=== PATIENT | female | born 1955 | race Caucasian/White ===

== ENCOUNTER → 2016-10-14 | Outpatient (CLI) | payer OTHER ==
[2016-10-14 12:20] LABS: Prothrombin Time 10.1 sec (9.0-12.0)
[2016-10-14 12:36] LABS: Appearance,Urine Clear (Clear); Bilirubin,Urine Negative (Negative); Glucose,Urine (UA) Negative (Negative); Ketones,Urine Negative (Negative); Leukocyte Esterase,Urine Negative (Negative); Nitrite,Urine Negative (Negative); PH, Urine 6.5 (5.0-8.0); Particle Count 404; Protein,Urine Negative (Negative); RBC,Urine 4 /hpf (0-5); Specific Gravity,Urine 1.014 (1.001-1.035); UA Billing (MACRO vs. MICRO) MICRO; Urobilinogen,Urine <2.0 mg/dL (<2.0); WBC,Urine <1 /hpf (0-5)
[2016-10-14 12:42] LABS: ALT 24 U/L (9-52); AST 19 U/L (14-36); Alkaline Phosphatase 74 U/L (38-126); Anion Gap 9 mmol/L; Blood Urea Nitrogen 21 mg/dL (7-17); Calcium 9.9 mg/dL (8.4-10.2); Carbon Dioxide 32 mmol/L (22-30); Chloride 101 mmol/L (98-107); Glucose 82 mg/dL (74-99); Non-African American GFR(MDRD) >60 (>60 ml/min/1.73 sqM); Potassium 3.9 mmol/L (3.5-5.1); Sodium 142 mmol/L (137-145); Total Bilirubin 0.5 mg/dL (0.2-1.3); Total Protein 7.5 g/dL (6.3-8.2)
[2016-10-14 12:44] LABS: CH 31.2; HCT 39.3 % (34.0-46.0); HDW 2.37; HGB 12.7 gm/dL (11.4-16.0); MCH 30.6 pg (25.0-35.0); MCHC 32.3 g/dL (31.0-37.0); MCV 94.9 fL (80.0-100.0); RBC 4.15 m/uL (3.80-5.40); RDW 13.2 % (11.5-15.5); WBC 6.1 k/uL (3.8-10.6)
== END | disposition home or self-care (01) ==
LOC: LABPAT 11:31
PROVIDERS: ATTEND Orthopaedic Surgery
DX: Z01.810 Encounter for preprocedural cardiovascular examination (principal); Z01.812 Encounter for preprocedural laboratory examination
CPT/HCPCS: 80053; 81001; 85027; 85610; 85730; 87070

== ENCOUNTER 2016-10-30 14:50 | Inpatient (IN) | payer OTHER ==
[2016-11-04 15:29] VITALS: BMI 34.6
[2016-11-10] MEDS ORDERED: ceFAZolin 2 GM in SODIUM CHLORIDE 0.9% 100 ML IVPB ONE (05:00)
[2016-11-10] MEDS ORDERED: MELOXICAM 7.5 MG TAB PO ONE (05:00)
[2016-11-10] MEDS ORDERED: TRANEXAMIC ACID 1,000 MG in SODIUM CHLORIDE 0.9% 100 ML IVPB ONE ×4 (05:00)
[2016-11-10] MEDS ORDERED: ACETAMINOPHEN TAB 500 MG TAB PO ONE (05:00)
[2016-11-10] MEDS ORDERED: MIDAZOLAM 2 MG/2 ML VIAL IV PRN (05:22)
[2016-11-10] MEDS ORDERED: LACTATED RINGERS 1,000 ML IV SCH (05:22)
[2016-11-10] MEDS ORDERED: HYDROmorphone 1 MG/ML 1 ML SYRINGE IVP PRN ×4 (05:22→10:39)
[2016-11-10] MEDS ORDERED: SCOPOLAMINE 1.5MG/72HR PATCH TRANSDERM ONE (05:22)
[2016-11-10] MEDS ORDERED: ONDANSETRON 4 MG/2 ML VIAL IVP ONE (05:22)
[2016-11-10] MEDS ORDERED: DEXAMETHASONE SOD PHOSPHATE 10 MG/ML 1 ML VIAL IV ONE (05:22)
[2016-11-10] MEDS ORDERED: ROPIVACAINE 246.25 MG, EPINEPHrine 0.5 MG, KETOROLAC 30 MG, cloNIDine HCL/PF 80 MCG, WA... MISCELLANE ONE ×5 (05:49)
[2016-11-10] MEDS ORDERED: LIDOCAINE 1% 20 ML VIAL (10MG/ML) FOR IV START INTRADERMA ONE (07:37)
[2016-11-10] MEDS ORDERED: FAMOTIDINE 20 MG/2 ML VIAL IVP ONE (07:57)
[2016-11-10] MEDS ORDERED: SODIUM CHLORIDE 0.9% 100 ML BAG ONE (08:35)
[2016-11-10] MEDS ORDERED: HEPARIN SODIUM,PORCINE 10,000 UNIT/ML 1 ML VIAL ONE (08:35)
[2016-11-10] MEDS ORDERED: PROPOFOL 10 MG/ML 20 ML VIAL IV ONE ×2 (08:35)
[2016-11-10] MEDS ORDERED: MIDAZOLAM 2 MG/2 ML VIAL ONE (08:35)
[2016-11-10] MEDS ORDERED: fentaNYL (PF) 50 MCG/ML 2 ML AMP ONE (08:35)
[2016-11-10] MEDS ORDERED: SODIUM CHLORIDE 0.9% IRRIG 1,000 ML BTL IRRIGATION ONE (08:35)
[2016-11-10] MEDS ORDERED: LIDOCAINE 1% INJ 10MG/ML (20 ML MDV) ONE (08:35)
[2016-11-10] MEDS ORDERED: ceFAZolin 3,000 MG in SODIUM CHLORIDE 0.9% IRRIGATIO 3,000 ML IRRIGATION ONE (09:21)
[2016-11-10] MEDS ORDERED: LACTATED RINGERS 1,000 ML IV ONE (09:58)
[2016-11-10] MEDS ORDERED: hydrOXYzine PAMOATE 25 MG CAP PO PRN (10:39)
[2016-11-10] MEDS ORDERED: MAGNESIUM HYDROXIDE 2,400 MG/10 ML CUP PO PRN (10:39)
[2016-11-10] MEDS ORDERED: DIAZEPAM 5 MG TAB PO PRN ×2 (10:39)
[2016-11-10] MEDS ORDERED: NALOXONE 0.4 MG/ML 1 ML VIAL IV PRN (10:39)
[2016-11-10] MEDS ORDERED: ONDANSETRON 4 MG/2 ML VIAL IVP PRN (10:39)
[2016-11-10] MEDS ORDERED: HYDROcodone/APAP 5-325MG 1 EACH TAB PO PRN (10:39)
--- NOTE | 2016-11-10 10:50 | XR ---
Limited left hip HISTORY: Anterior hip replacement Intraoperative C-arm images document the procedure.
--- NOTE | 2016-11-10 10:51 | FL ---
Fluoroscopy HISTORY: Anterior hip replacement 27 seconds fluoroscopy time supplied to the referring clinician. 2 intraoperative C-arm images docum ent the procedure. See dictated report from orthopedic surgery.
[2016-11-10 11:03] VITALS: RESP 16
--- NOTE | 2016-11-10 11:15 | XR ---
Limited left hip History: post hip replacement Two views of the left hip Patient is status post left hip arthroplasty. There is anatomic alignment. Lucency present in the sof t tissues. IMPRESSION: Orthopedic follow up
--- NOTE | 2016-11-10 13:25 | P.OP ---
Date of Procedure: 11/10/16 Preoperative Diagnosis: Severe osteoarthritis left hip Postoperative Diagnosis: Severe osteoarthritis left hip Procedure(s) Performed: Left total hip arthroplasty with a direct anterior approach Implants: Bhatia and nephew Polarstem size 3 standard [employer]hatia [employer] Nephew R3, 3 hole acetabular shell, 48 mm [employer]hew reflection 6.5 mm cancellus screw, 20 mm 2 [employer]hew R3, XLPE 20 acetabular liner [employer]hatia [employer] Nephew Oxinium femoral head 32 m, +4 All components were press-fit. The articulation is ceramic on polyethylene. Anesthesia: spinal Surgeon: Martin Toribio Tool Maker Apprentice #1: Roxann Valentin Tool Maker Apprentice #2: Vivian Eduardo Estimated Blood Loss (ml): 200 (58 mL returned with Cell Saver) Pathology: other (Femoral head) Condition: stable Disposition: PACU Indications for Procedure: After failure of conservative treatment we discussed the surgical and nonsurgical treatment options at length. Patient wishes to proceed with a total hip arthroplasty with a direct anterior approach. Complications specific to this procedure were discussed at length, including but not limited to infection, leg length discrepancy, dislocation, and nerve injury. Patient is aware of all these complications and informed consent was obtained Operative Findings: The operative findings are consistent with severe osteoarthritis of the left hip Description of Procedure: Patient was seen and evaluated in the preoperative area, consent was reviewed, and the surgical site was marked with a skin marker. Patient was then brought to the operating room and given prophylactic antibiotics intravenously. 1 g of Tranexamic acid was also given. A spinal anesthetic was administered by the anesthesia department. The patient was then placed on the [place] table with the bony prominences well-padded. The hip area was then prepped and draped in usual sterile fashion. A universal timeout was then performed, which confirmed the patient's name, surgical site, ALLERGIES, and procedure being performed. Next the incision site was located at 1 cm distal and 1 cm lateral to the anterior superior iliac spine. The skin and subcutaneous tissues were sharply incised. Incision was carefully dissected down to the fascia overlying the tensor fascia edward muscle. This fascia was then incised in line with the incision. Next, using blunt finger dissection, the tensor fascia edward muscle was dissected off its investing fascia. The muscle was then carefully retracted laterally with a cobra retractor over the lateral neck of the femur. Next, the circumflex vessels were identified and cauterized using the AquaMantis device. The anterior hip capsule was then exposed. The capsule was then opened and an inverted T fashion. Retention sutures were placed in the inferior arms of the capsule. Cobra retractors were then placed intracapsularly. The proximal femur was then visualized. The femoral neck was then osteotomized appropriate level above the lesser trochanter. Small amount of traction was placed with the [place] table. A small wedge of bone was then removed from the remaining femoral head. Next, using a corkscrew femoral head was easily removed from the acetabulum. On gross visual inspection, the femoral head had complete loss of articular cartilage in multiple periarticular osteophytes. Attention was then turned to the acetabulum. the acetabulum was exposed and any remaining labrum was excised. Sequential reaming of the acetabulum was performed using fluoroscopic guidance. When the appropriate size was reached, a trial was then placed. The position and fit of the trial was checked with fluoroscopy. The trial was then removed. Then, using fluoroscopic guidance, the final implant was impacted at 20 of anteversion and 40 of abduction, and fully seated in the acetabulum. 2 screws were then placed in the acetabulum. Again fluoroscopy was used to check position of the screws. Next, the liner was then impacted, with a 20 elevated liner located in the anterior superior quadrant. Component locking was confirmed. Attention was then directed to the femur. With the aid of the [place] table, the femur was externally rotated to approximately 130, extended, and abducted under the opposite leg. A side hook was then placed under the proximal femur, and the side hook elevator was used to elevate the proximal femur. Retractors were then placed. A capsular release was performed, as well as a release of the conjoined tendon, which afforded excellent visualization of the proximal femur. Next, a box osteotome was used to lateralize the proximal femur. A hand cloth examiner was then used to locate the femoral canal. Sequential broaching was then performed with appropriate size which afforded excellent fixation in the proximal femur. A trial was then placed with appropriate head and neck, and the hip was gently reduced with the aid of the [place] table. Fluoroscopy was then used to check position of the components, as well as to ensure equal leg lengths. The hip was then gently dislocated and the trials were then removed. Final implants were then impacted and the hip was again reduced. Final fluoroscopic x-rays confirmed that the components were in anatomic position, as well as equal leg lengths. The hip was also taken through range of motion, and found to be stable. The hip was then copiously irrigated with antibiotic solution with pulsatile lavage. The hip was then irrigated with Irrisept solution. The soft tissues were then injected with a ropivacaine solution, which consisted of 246.25 mg of ropivacaine, 0.5 mg of epinephrine, 30 mg of Toradol, 80 g of clonidine, and 48.45 mL of sterile water, for a total of 100 mL of fluid injected. A second dose of 1 g of Tranexamic acid was also given. the fascia was then closed with 2-0 strata fix suture. The subcutaneous tissue was closed with 3-0 Vicryl. The subcuticular tissue was closed with 3-0 strata fix suture. The skin was then closed with Dermabond tape. The patient was then transferred to the recovery room in stable condition. The care management assistant AD Hernandez was required due to the complexity of surgery , and the need for skilled printer's assistant for positioning, draping, exposure , retraction, and closure of the wound.
[2016-11-10] MEDS: ceFAZolin 2 GM in SODIUM CHLORIDE 0.9% 100 ML IVPB SCH ×2 (15:32→23:10)
[2016-11-10] MEDS: SODIUM CHLORIDE 0.9% 1,000 ML IV SCH (15:49)
[2016-11-10] MEDS: HYDROCHLOROTHIAZIDE 25 MG TAB PO SCH (15:49)
--- NOTE | 2016-11-10 17:45 | CONS ---
DATE OF CONSULTATION: 11/10/2016 REASON FOR CONSULTATION: Advice regarding GERD, hypertension, and other multiple medical problems requested by Dr. Toribio. HISTORY OF PRESENT ILLNESS: This 61-year-old woman with a past medical history of multiple medical problems including gastroesophageal reflux disease, hypertension, history of degenerative joint disease being followed by Dr. Lopes in the outpatient setting, was admitted after left total hip joint arthroplasty. There is no history of fever, rigors or chills. No history of headache, loss of consciousness. No history of any chest pain, palpitations at this time. Past medical history of: 1. Gastroesophageal reflux disease. 2. Hypertension. 3. History of degenerative joint disease. 4. History of colonoscopy. MEDICATIONS: 1. Ultram 50 mg q.6 p.r.n. 2. Multivitamin one p.o. daily. 3. Meloxicam 50 mg daily. 4. HydroDIURIL 25 mg daily. 5. Pepcid 20 mg p.o. daily. 6. Vitamin D2 5000 daily. ALLERGIES: noted. FAMILY HISTORY: History of cancer in the family. SOCIAL HISTORY: Previous history of smoker. Occasional alcohol intake. REVIEW OF SYSTEMS: ENT: No diminishing hearing or diminished vision. CARDIOVASCULAR: No angina or palpitations. RESPIRATORY: No cough. No hemoptysis. GI: No nausea or vomiting. : No dysuria. Nervous system: No numbness or weakness. ALLERGY/IMMUNOLOGY: No asthma or hayfever. MUSCULOSKELETAL: As mentioned earlier. HEMATOLOGY/ONCOLOGY: No history of anemia. ENDOCRINE: No history of diabetes, hypothyroidism. CONSTITUTIONAL: As mentioned earlier. DERMATOLOGY: Negative. RHEUMATOLOGY: Negative. PSYCHIATRY: As mentioned earlier. PHYSICAL EXAMINATION: The patient is alert and oriented times three. Pulse 66, blood pressure 130/54, respirations 16, temperature 97.8, pulse ox 94% on room air. HEENT: Conjunctivae normal. NECK: No jugular venous distention. CARDIOVASCULAR: S1, S2. RESPIRATORY: Breath sounds diminished at the bases. No rhonchi, no crackles. ABDOMEN: Soft, nontender. No mass palpable. Legs: Status post hip arthroplasty. Nervous system: Higher function as mentioned. Moves all four limbs. No focal motor or sensory deficits. LYMPHATICS: No lymph nodes palpable in the neck, axillae or groin. SKIN: No swelling. Nervous system: No focal deficit. LABS: Current labs not available. Recently, concluded labs from last year showed LDL of 104. ASSESSMENT: 1. Status post left hip arthroplasty. 2. History of hypertension. 3. History of degenerative joint disease. 4. History of gastroesophageal reflux disease. 5. History of mild hyperlipidemia previously. 6. Remote history of nicotine dependence. 7. FULL CODE. RECOMMENDATIONS AND DISCUSSION: In this 61 -year-old woman who presented with multiple medical issues, I recommend to continue symptomatic treatment, continue current medications. Recommend to resume home medications. Monitor blood pressure closely. Otherwise, monitor closely, DVT prophylaxis. Incentive spirometry. We will follow the patient closely. The patient may be asked to follow-up Dr. Lopes closely after discharge. Thank you, Dr. Toribio for letting us participate in the care of this patient. LATONYA
[2016-11-10] MEDS: HYDROcodone/APAP 5-325MG 1 EACH TAB PO PRN (20:40)
[2016-11-10] MEDS: ASPIRIN 325 MG TAB PO SCH (20:40)
[2016-11-10] MEDS ORDERED: SENNOSIDES-DOCUSATE SODIUM 1 EACH TAB PO SCH (21:00)
[2016-11-11] MEDS: SODIUM CHLORIDE 0.9% 1,000 ML IV SCH (01:43)
[2016-11-11] MEDS: HYDROcodone/APAP 5-325MG 1 EACH TAB PO PRN ×3 (01:45→13:40)
[2016-11-11 07:22] LABS: Basophils % (A) 0 %; CH 31.1; CHCM 33.2; Eosinophils % (A) 0 %; HCT 31.6 % (34.0-46.0); HDW 2.35; HGB 10.7 gm/dL (11.4-16.0); Luc # (Auto) 0.16; Luc % (Auto) 1; Lymphocytes # (A) 2.3 k/uL (1.0-4.8); Lymphocytes % (A) 20 %; MCH 31.8 pg (25.0-35.0); MCHC 33.9 g/dL (31.0-37.0); Monocytes # (A) 0.5 k/uL (0-1.0); Monocytes % (A) 5 %; Neutrophils # (A) 8.1 k/uL (1.3-7.7); Neutrophils % (A) 73 %; RBC 3.36 m/uL (3.80-5.40); RDW 13.2 % (11.5-15.5); WBC 11.1 k/uL (3.8-10.6); WBC (Perox) 11.07
[2016-11-11] MEDS: HYDROCHLOROTHIAZIDE 25 MG TAB PO SCH (08:09)
[2016-11-11] MEDS: ASPIRIN 325 MG TAB PO SCH (08:09)
[2016-11-11] MEDS ORDERED: MELOXICAM 7.5 MG TAB PO SCH (09:00)
[2016-11-11] MEDS ORDERED: FAMOTIDINE 20 MG TAB PO SCH (09:00)
--- NOTE | 2016-11-11 09:17 | P.DS ---
Providers Date of admission: 11/10/16 06:53 Expected date of discharge: 11/11/16 Attending physician: Martin Toribio Consults: 11/10/16 10:39 Consult Physician Routine Consulting Provider: Elvia Fairchild Consult Reason/Comments: medical management Do you want consulting provider notified?: Yes Primary care physician: Martin Lopes - Discharge Diagnosis(es) (1) Status post left hip replacement Current Visit: Yes Status: Acute (2) Primary osteoarthritis of left hip Current Visit: Yes Status: Acute Hospital Course: This is a pleasant 61-year-old female last seen in our office with complaints of left hip pain. The patient has known degenerative arthritis of the left hip and presented to discuss options. After discussion consideration the patient looks to proceed with a left total hip arthroplasty. The patient was seen and preoperatively cleared for surgery by her primary care physician. The patient was admitted to [facility] on 11/10/2016 and underwent left total hip arthroplasty with Dr. Martin Toribio. The procedure was performed without competitions or sequelae. The patient has done well postoperatively. She's been up ambulating the hallways. She was seen and evaluated at bedside with Dr. Martin Toribio. Her pain is under fair control and she has no new complaints this time. Dressing is clean dry and intact. She is able to perform active knee motion. Calf is soft and nontender. She has sustained dorsiflexion and plantar flexion. Sensation and circulatory status is intact. is orthopedic stable for discharge to home this afternoon if she is doing well with physical therapy. Her discharge may otherwise be held until tomorrow. Pertinent Studies: Laboratory Tests 11/11/16 06:52 WBC 11.1 H RBC 3.36 L Hgb 10.7 L Hct 31.6 L Patient Condition at Discharge: Good Plan - Discharge Summary New Discharge Prescriptions: New Aspirin 325 mg PO BID #60 tab Hydrocodone/Acetaminophen [[place] 5-325] 1 - 2 each PO Q6HR PRN #90 tab PRN Reason: Pain Sennosides-Docusate Sodium [Senokot-S] 2 tab PO DAILY #60 tablet No Action Hydrochlorothiazide [Hydrodiuril] 25 mg PO DAILY Cholecalciferol [Vitamin D3] 5,000 unit PO DAILY traMADol HCL [Ultram] 50 mg PO Q6HR PRN PRN Reason: Pain Meloxicam 15 mg PO DAILY Multivitamin [Multiple Vitamins] 1 tab PO DAILY Famotidine [Pepcid] 20 mg PO DAILY Discharge Medication List Cholecalciferol [Vitamin D3] 5,000 unit PO DAILY 11/04/16 [History] Famotidine [Pepcid] 20 mg PO DAILY 11/04/16 [History] Hydrochlorothiazide [Hydrodiuril] 25 mg PO DAILY 11/04/16 [History] Meloxicam 15 mg PO DAILY 11/04/16 [History] Multivitamin [Multiple Vitamins] 1 tab PO DAILY 11/04/16 [History] traMADol HCL [Ultram] 50 mg PO Q6HR PRN 11/04/16 [History] Aspirin 325 mg PO BID #60 tab 11/11/16 [Rx] Hydrocodone/Acetaminophen [[place] 5-325] 1 - 2 each PO Q6HR PRN #90 tab 11/11/16 [Rx] Sennosides-Docusate Sodium [Senokot-S] 2 tab PO DAILY #60 tablet 11/11/16 [Rx] Follow up Appointment(s)/Referral(s): Martin Toribio DO [Doctor of Osteopathic Medicine] - 2 Weeks Activity/Diet/Wound Care/Special Instructions: Weightbearing as tolerated with walker Daily dressing changes Keep incision clean and dry Call [facility] with questions or concerns [phone] Discharge Disposition: HOME WITH HOME HEALTH SERVICES
[2016-11-11] MEDS ORDERED: CHOLECALCIFEROL 1,000 UNIT TAB PO SCH (12:00)
[2016-11-11 13:38] LABS: Appearance,Urine Clear (Clear); Bilirubin,Urine Negative (Negative); Glucose,Urine (UA) Negative (Negative); Ketones,Urine Negative (Negative); Leukocyte Esterase,Urine Negative (Negative); Nitrite,Urine Negative (Negative); PH, Urine 5.5 (5.0-8.0); Protein,Urine Negative (Negative); Specific Gravity,Urine 1.022 (1.001-1.035); UA Billing (MACRO vs. MICRO) CHEM; Urobilinogen,Urine <2.0 mg/dL (<2.0)
[2016-11-11 14:01] VITALS: BP 110/69; PULSE 83; TEMP 97.1
--- NOTE | 2016-11-11 15:31 | PN ---
DATE OF SERVICE: 11/11/2016 This is a 61-year-old woman who was admitted with left hip arthroplasty. Also had elevated WBC. No chest pain, no palpitation, no fever. On exam, alert and oriented x3. Pulse 83, blood pressure 126/90, respirations 16, temperature 97.1, pulse ox 98% on room air. HEENT: Conjunctivae normal. NECK: No jugular venous distension. CARDIOVASCULAR: S1, S2, muffled. RESPIRATORY: Breath sounds diminished at the bases, no rhonchi. ABDOMEN: Soft. LEGS: Status post hip arthroplasty. NERVOUS SYSTEM: No focal deficits. LABS: WBC is 11, hemoglobin is 10.7. ASSESSMENT: 1. Status post left hip arthroplasty. 2. Increased WBC, possibly reactive. 3. History of hypertension. 4. History of degenerative joint disease. 5. History of gastroesophageal reflux disease. 6. History of mild hyperlipidemia, previously. 7. Remote history of nicotine dependence. 8. FULL CODE. RECOMMENDATION: Recommend to continue with the monitoring and symptomatic treatment. Otherwise, at this time I recommend UA with micro and resume the home medications. Follow up with the primary physician in the outpatient setting. Incentive spirometer. The rest of the recommendation per Orthopedic Surgery. Further recommendations to follow.
== END 2016-11-11 15:12 | disposition home health service (06) | DRG 470 ==
LOC: 2ORMAIN 11-10 06:53 → 3SUR 11-10 10:43
PROVIDERS: ADMIT Orthopaedic Surgery; ATTEND Orthopaedic Surgery
PROC: 0SRB04A Replacement of Left Hip Joint with Ceramic on Polyethylene Synthetic Substitute, Uncemented, Open Approach (ICD-10-PCS; principal; 2016-11-10 08:30)
DX: M16.12 Unilateral primary osteoarthritis, left hip (principal); I10 Essential (primary) hypertension; E78.5 Hyperlipidemia, unspecified; K21.9 Gastro-esophageal reflux disease without esophagitis; Z87.891 Personal history of nicotine dependence; Z79.899 Other long term (current) drug therapy; Z88.2 Allergy status to sulfonamides
CPT/HCPCS: 73501; 81003; 85025; 86850; 86891; 86900; 86901; 88305; 88311

== ENCOUNTER → 2016-11-04 | Outpatient (CLI) | payer OTHER | END | disposition home or self-care (01) | LOC: LABPAT 10:55 | PROVIDERS: ATTEND Family Medicine | DX: Z53.9 Procedure and treatment not carried out, unspecified reason (principal) ==

== ENCOUNTER → 2018-04-19 | Outpatient (CLI) | payer OTHER ==
--- NOTE | 2018-04-21 10:12 | MM ---
Reason for exam: screening (asymptomatic). Last mammogram was performed 2 years and 3 months ago. History: Patient is postmenopausal. Family history of breast cancer in cousin at age 65. MG Screening Mammo w CAD Bilateral CC and MLO view(s) were taken. Prior study comparison: January 21, 2016, bilateral MG screening mammo w CAD. April 12, 2014, bilateral MG screening mammo w CAD. There are scattered fibroglandular densities. No significant changes when compared with prior studies. ASSESSMENT: Benign, BI-RAD 2 RECOMMENDATION: Routine screening mammogram of both breasts in 1 year.
== END | disposition home or self-care (01) ==
LOC: RADMAMWWP 16:34
PROVIDERS: ATTEND Family Medicine
DX: Z12.31 Encounter for screening mammogram for malignant neoplasm of breast (principal)
CPT/HCPCS: 77067

== ENCOUNTER → 2019-06-08 | Outpatient (CLI) | payer OTHER ==
--- NOTE | 2019-06-12 09:02 | MM ---
Reason for exam: screening (asymptomatic). Last mammogram was performed 1 year and 2 months ago. History: Patient is postmenopausal. Family history of breast cancer in cousin at age 65. Physical Findings: A clinical breast exam by your physician is recommended on an annual basis and results should be correlated with mammographic findings. MG Screening Mammo w CAD Bilateral CC and MLO view(s) were taken. Prior study comparison: April 19, 2018, bilateral MG screening mammo w CAD. January 21, 2016, bilateral MG screening mammo w CAD. The breast tissue is almost entirely fat. No significant changes when compared with prior studies. ASSESSMENT: Negative, BI-RAD 1 RECOMMENDATION: Routine screening mammogram of both breasts in 1 year.
== END | disposition home or self-care (01) ==
LOC: RADMAMWWP 07:37
PROVIDERS: ATTEND Physician Assistant Medical
DX: Z12.31 Encounter for screening mammogram for malignant neoplasm of breast (principal)
CPT/HCPCS: 77067

== ENCOUNTER → 2020-03-18 | Outpatient (CLI) | payer MEDICARE ==
--- NOTE | 2020-03-18 15:35 | XR ---
EXAMINATION TYPE: XR shoulder complete RT DATE OF EXAM: 03/18/2020 CLINICAL HISTORY: Anterior superior shoulder pain for several weeks. No known injury. TECHNIQUE: Three views of the right shoulder are obtained. COMPARISON: None. FINDINGS: There is no acute fracture/dislocation evident in the right shoulder. The acromioclavicul ar and glenohumeral joint spaces appear within normal limits. The visualized ribs are intact and unr emarkable. IMPRESSION: No acute fracture or dislocation in the right shoulder.
== END | disposition home or self-care (01) ==
LOC: RADXRYALE 09:57
PROVIDERS: ATTEND Physician Assistant Medical
DX: M25.511 Pain in right shoulder (principal)

== ENCOUNTER → 2020-06-01 | Outpatient (CLI) | payer MEDICARE ==
--- NOTE | 2020-06-01 09:00 | MR ---
EXAMINATION TYPE: MR shoulder RT wo con DATE OF EXAM: 06/01/2020 COMPARISON: 03/18/2020 HISTORY: 65-year-old female Right shoulder pain TECHNIQUE: Multiplanar, multisequence imaging of the right shoulder is performed without contrast. FINDINGS: There is thickening and abnormal signal of the intracapsular portion of long biceps tendon at the lev el biceps anchor. Signal extends into the glenoid labrum at this level. The extracapsular portion of the biceps tendon remains appropriately situated along the bicipital groove with mild tenosynovial fl uid. Mild heterogeneity of the subscapularis tendon which remains intact. Extensive heterogeneity of the anterior to mid supraspinatus tendon measuring 2.0 cm AP and 2.0 cm lo ng. While there is bursal sided fraying, overall volume is maintained. Partial-thickness tearing or p rominent tendinosis is suggested. Moderate to severe degenerative change at the AC joint with joint space narrowing, joint effusion, silva bchondral cystic change, capsular hypertrophy, and prominent inferior spurring impressing on to the m yotendinous junction of the supraspinatus. Trace effusion in the subacromial/subdeltoid bursa. Infraspinatus tendon is intact. No atrophy of the rotator cuff musculature. Glenohumeral joint is intact. No significant joint effusion. There is some edematous soft tissue repl acement in the region of the rotator cuff interval. No Hill-Sachs deformity or os acromiale. No suspicious bone marrow replacement. IMPRESSION: 1. Supraspinatus tendinosis with bursal sided fraying. Extensive signal changes are present along the anterior to mid supraspinatus tendon but overall tendon volume is maintained. This could reflect par tial thickness tearing versus tendinosis. No full-thickness tear or muscle atrophy. 2. Moderate to severe AC joint OA with subacromial impingement. 3. Abnormal signal at the biceps anchor and adjacent superior labrum. Underlying superior labral tear extending into the biceps anchor not excluded. 4. Edematous soft tissue replacement in the rotator cuff interval is nonspecific. Synovitis, biceps p ulley sprain, or adhesive capsulitis are differential considerations. Clinically correlate.
== END | disposition home or self-care (01) ==
LOC: RADMRIMAIN 08:01
PROVIDERS: ATTEND Family Medicine
DX: M19.011 Primary osteoarthritis, right shoulder (principal)

== ENCOUNTER → 2022-11-13 | Outpatient (CLI) | payer MEDICARE ==
--- NOTE | 2022-11-16 08:30 | MM ---
Reason for Exam: Screening (asymptomatic). Last mammogram was performed 3 year(s) and 5 month(s) ago. Patient History: Menarche at age 12. First Full-Term at age 30. Late child-bearing (after 30). Postmenopausal. Maternal cousin had breast cancer, age 65. Mother had ovarian cancer, age 70. Risk Values: Nell 5 year model risk: 2.3%. NCI Lifetime model risk: 7.9%. Prior Study Comparison: 01/21/2016 Bilateral Screening Mammogram, [facility]. 04/19/2018 Bilateral Screening Mammogram, [facility]. 06/08/2019 Bilateral Screening Mammogram, [facility]. Tissue Density: There are scattered fibroglandular densities. Findings: Analyzed By CAD. There is no suspicious group of microcalcifications or new suspicious mass in either breast. Overall Assessment: Negative, BI-RAD 1 Management: Screening Mammogram of both breasts in 1 year. . Patient should continue monthly self-breast exams. A clinical breast exam by your physician is recommended on an annual basis. This exam should not preclude additional follow-up of suspicious palpable abnormalities. Note on Nell scores and lifetime risk: 1. A Nell score greater than 3% is considered moderate risk. If this is the case, consider specialist referral to assess eligibility for a risk reducing agent. 2. If overall lifetime risk for the development of breast cancer is 20% or higher, the patient may qualify for future screening with alternating mammogram and breast MRI. Electronically signed and approved by: Hipolito Raman M.D. Radiologis
--- NOTE | 2022-11-16 11:14 | BD ---
EXAMINATION TYPE: Axial Bone Density DATE OF EXAM: 11/13/2022 CLINICAL HISTORY: 67 years old Female. ICD-10 CODE: M810 AGE RELATED OSTEO Nuclear Medicine Study in the last 2 weeks: No Barium Study in the last week: No : No Height: 67" Weight: 226.6lbs FRAX RISK QUESTIONS: Alcohol (3 or more units per day): No Family History (Parent hip fracture): Mother, from a fall on stairs Glucocorticoids (More than 3mos): No (Ex: prednisone, prednisolone, methylprednisolone, dexamethasone, and hydrocortisone). History of Fracture in Adulthood: No Secondary Osteoporosis: 1. Type 1 Diabetes: No 2. Hyperthyroidism: No 3. Menopause before 45: No 4. Malnutrition: No 5. Chronic liver disease: No Rheumatoid Arthritis: No Current Tobacco Use: No RISK FACTORS HISTORY OF: Hip Fracture (Right/Left): No When: Spine Fracture: No When: History of Wrist Fracture: No When: Surgery to Spine/Hip(right/left)/Wrist (right/left): Yes, left hip total replacement When: 5/6 years ago Family History of Osteoporosis: No Active: Yes Diet low in dairy products/other sources of calcium: Yes Postmenopausal woman: Yes Lost more than 2 inches in height since high school: No Frequent falls: No Poor Health: No Hyperparathyroidism: No Adrenal Insufficiency: No MEDICATIONS: Prednisone or other steroids: No Thyroid Medications: No Osteoporosis Medications: No Additional Medications: Losartan, Wellbutrin, vitamin D Additional History: Patient had hip replaced after last DEXA, scanned left forearm today in addition to right femur and AP spine EXAM MEASUREMENTS: Bone mineral densitometry was performed using the [email or web address] System. Bone mineral density as measured about the Lumbar spine is: ----- L1-L4(G/cm2): 1.088 T Score Values are as follows: ----- L1: -0.9 ----- L2: -0.5 ----- L3: -0.9 ----- L4: -0.9 ----- L1-L4: -0.8 Z Score Values are as follows: ----- L1: -0.4 ----- L2: 0.0 ----- L3: -0.4 ----- L4: -0.4 ----- L1-L4: -0.3 Bone mineral density has: decreased -2.5% since study of: 01/21/2016 Bone mineral density about the L hip (g/cm2): 0.915 T Score values are as follows: -----L Neck: -0.7 -----L Total: -0.7 Z Score values are as follows: -----L Neck: 0.1 -----L Total: -0.2 Bone mineral density has: decreased -4.8% since study of: 01/21/2016 Bone mineral density about the L Wrist (g/cm2): 0.681 T Score values are as follows: -----Dist. R+U: 0.0 -----Prox. R+U: -0.7 -----Radius total: 0.1 Z Score values are as follows: -----Dist. R+U: 1.6 -----Prox. R+U: 0.9 -----Radius total: 1.7 Baseline for left forearm FRAX%s: The graph provided illustrates a 13.0% chance for a major osteoporotic fx and a 0.8% chance f or the hips probability for fx in 10 years time. IMPRESSION: Normal (Values between +1 and -1 indicate normal bone mass). Consider repeating this study in 5 year s or sooner if there is some new clinical indication. NOTE: T-SCORE=SD OF THE YOUNG ADULT MEAN.
== END | disposition home or self-care (01) ==
LOC: RADMAMWWP 07:46
PROVIDERS: ATTEND Family Medicine
DX: Z12.31 Encounter for screening mammogram for malignant neoplasm of breast (principal); M81.0 Age-related osteoporosis without current pathological fracture; Z78.0 Asymptomatic menopausal state; Z80.3 Family history of malignant neoplasm of breast; Z80.41 Family history of malignant neoplasm of ovary
CPT/HCPCS: 77063; 77067; 77080

== ENCOUNTER → 2024-05-23 | Outpatient (CLI) | payer MEDICARE ==
--- NOTE | 2024-05-24 09:30 | MM ---
Reason for Exam: Screening (asymptomatic). Last mammogram was performed 1 year(s) and 6 month(s) ago. Patient History: Menarche at age 12. First Full-Term at age 30. Late child-bearing (after 30). Postmenopausal. Maternal cousin had breast cancer, age 65. Mother had ovarian cancer, age 70. Risk Values: Nell 5 year model risk: 2.4%. NCI Lifetime model risk: 7.3%. Prior Study Comparison: 04/19/2018 Bilateral Screening Mammogram, [facility]. 06/08/2019 Bilateral Screening Mammogram, [facility]. 11/13/2022 Bilateral MG 3D screening mammo w/cad, [facility]. Tissue Density: The breasts are almost entirely fatty. Findings: Analyzed By CAD. Right breast: There is no suspicious group of microcalcifications or new suspicious mass. Left breast: There is no suspicious group of microcalcifications or new suspicious mass. Overall Assessment: Negative, BI-RAD 1 Management: Screening Mammogram of both breasts in [address] [facility] will attempt to contact patient to return for supplemental views and ultrasound if indicated. Patient should continue monthly self-breast exams. A clinical breast exam by your physician is recommended on an annual basis. This exam should not preclude additional follow-up of suspicious palpable abnormalities. Note on Nell scores and lifetime risk: 1. A Nell score greater than 3% is considered moderate risk. If this is the case, consider specialist referral to assess eligibility for a risk reducing agent. 2. If overall lifetime risk for the development of breast cancer is 20% or higher, the patient may qualify for future screening with alternating mammogram and breast MRI. [facility], , 05/24/2024 9:27 AM. Electronically signed and approved by: Franklin Palumbo DO
== END | disposition home or self-care (01) ==
LOC: RADMAMWWP 11:16
PROVIDERS: ATTEND Family Medicine
DX: Z12.31 Encounter for screening mammogram for malignant neoplasm of breast (principal); Z78.0 Asymptomatic menopausal state; Z80.3 Family history of malignant neoplasm of breast; R92.313 Mammographic fatty tissue density, bilateral breasts
CPT/HCPCS: 77063; 77067